=== PATIENT | female | born 1950 | race Two or more races ===

== ENCOUNTER 2019-03-22 06:12 | Day surgery (SDC) | payer MEDICARE, MEDICAID ==
[~2019-03-22] VITALS: Ht 154.9 cm; Wt 66.2 kg
[~2019-03-22 06:12] MED LIST: CYCLOPENTOLATE HCL 1% OPHTH DROPS 2ML RIGHTEYE SCH; PHENYLEPHRINE HCL 10% OPHTH DROPS 5ML RIGHTEYE SCH; TROPICAMIDE 1% OPHTH DROPS 15ML RIGHTEYE SCH
[2019-03-22] MEDS ORDERED: HYALURONATE SODIUM 14 MG/ML 0.85ML SYRINGE IO ONE (07:22)
[2019-03-22] MEDS ORDERED: FENTANYL CITRATE/PF 50MCG/ML 2ML VIAL ONE (07:25)
[2019-03-22] MEDS ORDERED: MIDAZOLAM HCL 2 MG/2 ML VIAL ONE (07:25)
[2019-03-22] MEDS ORDERED: DIPHENHYDRAMINE 50MG/ML VIAL ONE (07:25)
[2019-03-22] MEDS ORDERED: LIDOCAINE HCL/PF 1% 10 MG/ML 5ML VIAL ONE (07:27)
[2019-03-22] MEDS ORDERED: PROPOFOL 200MG/20ML VIAL IV ONE (07:27)
[2019-03-22] MEDS ORDERED: BALANCED SALT IRRIG SOLN COMB1 500ML OP ONE (07:30)
[2019-03-22] MEDS ORDERED: TETRACAINE 0.5% OPHTH DROPS 4ML ONE (09:00)
[2019-03-22] MEDS ORDERED: BALANCED SALT IRRIG SOLN 15ML ONE (09:00)
[2019-03-22] MEDS ORDERED: PREDNISOLONE ACETATE 1% OPHTH DROPS 5ML ONE (09:00)
[2019-03-22] MEDS ORDERED: CIPROFLOXACIN 0.3% OPHTH SOLN 2.5ML ONE (09:00)
[2019-03-22] MEDS ORDERED: LIDOCAINE HCL/PF 2% 20 MG/ML 10ML VIAL ONE (09:00)
[2019-03-22] MEDS ORDERED: METF-414 PO (14:29)
[2019-03-22] MEDS ORDERED: CYPR4TAB43 PO (14:29)
[2019-03-22] MEDS ORDERED: DOCU-138 PO (14:29)
[2019-03-22] MEDS ORDERED: DORZ10DR9 EACHEYE (14:29)
[2019-03-22] MEDS ORDERED: LATA2.5D2 EACHEYE (14:29)
[2019-03-22] MEDS ORDERED: OCD PO (14:29)
[2019-03-22] MEDS ORDERED: ATEN-42 PO (14:29)
[2019-03-22] MEDS ORDERED: BRIM.2 BOTHEYE (14:29)
[2019-03-22] MEDS ORDERED: FISH12002 PO (14:29)
[2019-03-22] MEDS ORDERED: CYAN1TAB43 PO (14:29)
[2019-03-22] MEDS ORDERED: SIME180C47 PO (14:29)
[2019-03-22] MEDS ORDERED: LISI-648 PO (14:29)
[2019-03-22] MEDS ORDERED: SIMV20TA6 PO (14:29)
[2019-03-22] MEDS ORDERED: ASPI-1393 PO (14:29)
[2019-03-22] MEDS ORDERED: FERR325T6 PO (14:29)
== END 2019-03-22 10:00 | disposition home or self-care (01) ==
LOC: OR 06:12
PROVIDERS: ATTEND Ophthalmology
DX: E11.36 Type 2 diabetes mellitus with diabetic cataract (principal); H25.89 Other age-related cataract; I10 Essential (primary) hypertension; K21.9 Gastro-esophageal reflux disease without esophagitis; M19.90 Unspecified osteoarthritis, unspecified site; E78.5 Hyperlipidemia, unspecified; G31.84 Mild cognitive impairment of uncertain or unknown etiology; D50.9 Iron deficiency anemia, unspecified; H40.9 Unspecified glaucoma; Z79.899 Other long term (current) drug therapy; Z79.84 Long term (current) use of oral hypoglycemic drugs; Z79.82 Long term (current) use of aspirin; Z98.890 Other specified postprocedural states
CPT/HCPCS: 66984; 82962; J1200; J2250; J2704; J3010; J3490; V2632

== ENCOUNTER → 2020-10-01 | Outpatient (CLI) | payer MEDICARE, MEDICAID ==
[~2020-10-01] MED LIST changes: +ASPI-1497 PO; +ATEN-42 PO; +BRIM.2 BOTHEYE; +BRIN8DRO BOTHEYE; +CYAN1TAB43 PO; +CYAN500T9 PO; -CYCLOPENTOLATE HCL 1% OPHTH DROPS 2ML RIGHTEYE SCH; +CYPR4TAB43 PO; +DOCU-138 PO; +DORZ10DR9 EACHEYE; +FERR325T6 PO; +FISH12002 PO; +FOLI0.4T6 PO; +LATA2.5D14 EACHEYE; +LISI-648 PO; +LISI20TA31 PO; +LOTE5DRO4 BOTHEYE; +METF-414 PO; +METH25TA5 PO; +OCD PO; -PHENYLEPHRINE HCL 10% OPHTH DROPS 5ML RIGHTEYE SCH; +SIME180C47 PO; +SIMV-43 PO; -TROPICAMIDE 1% OPHTH DROPS 15ML RIGHTEYE SCH
== END | disposition home or self-care (01) ==
LOC: LAB 09:59
PROVIDERS: ATTEND Ophthalmology
DX: Z01.812 Encounter for preprocedural laboratory examination (principal); Z20.822 Contact with and (suspected) exposure to COVID-19
CPT/HCPCS: 87426

== ENCOUNTER → 2020-10-02 | Day surgery (SDC) | payer MEDICARE, MEDICAID ==
[~2020-10-02] VITALS: Ht 162.6 cm; Wt 71.2 kg
[~2020-10-02] MED LIST changes: +ACETYLCHOLINE CHLORIDE INTRAOCULAR SOLUTION 1:100 ELECTROLYTE DILUENT IO ONE; +BALANCED SALT IRRIG SOLN 15ML ONE; +BALANCED SALT IRRIG SOLN COMB1 500ML OP SCH; +BUPIVACAINE HCL/PF 0.75% (7.5MG/ML) 10ML ONE; +CIPROFLOXACIN 0.3% OPHTH SOLN 2.5ML ONE; +FENTANYL CITRATE/PF 50MCG/ML 2ML VIAL ONE; +HYALURONATE SODIUM 10 MG/ML 0.55ML SYRINGE IO ONE; +KETOROLAC 30MG/ML VIAL ONE; +LACTATED RINGERS 1,000 ML IV SCH; +LIDOCAINE HCL 2%/EPINEPHRINE 1:100,000 20 ML VIAL INFIL ONE; +LIDOCAINE HCL/PF 1% 10 MG/ML 5ML VIAL ONE; +MIDAZOLAM HCL 2 MG/2 ML VIAL ONE; +MITOMYCIN 0.2 MG KIT OP SCH; +NEO/POLYMYX B SULF/DEXAMETH OPHTH OINT 3.5GM ONE; +PHENYLEPHRINE HCL 10% OPHTH DROPS 5ML LEFTEYE SCH; +PHENYLEPHRINE HCL 10% OPHTH DROPS 5ML ONE; +PREDNISOLONE ACETATE 1% OPHTH DROPS 5ML ONE; +PROPOFOL 200MG/20ML VIAL IV ONE; +TETRACAINE 0.5% OPHTH DROPS 4ML ONE; +TRIAMCINOLONE ACETONIDE 40MG/ML 1ML VIAL ONE; +TROPICAMIDE 1% OPHTH DROPS 15ML LEFTEYE SCH; +TROPICAMIDE 1% OPHTH DROPS 15ML ONE
== END | disposition home or self-care (01) ==
LOC: OR 06:40
PROVIDERS: ATTEND Ophthalmology
DX: H25.89 Other age-related cataract (principal); H40.89 Other specified glaucoma; I10 Essential (primary) hypertension; E87.1 Hypo-osmolality and hyponatremia; I45.10 Unspecified right bundle-branch block; N28.9 Disorder of kidney and ureter, unspecified; Z79.82 Long term (current) use of aspirin; Z79.899 Other long term (current) drug therapy; Z98.890 Other specified postprocedural states
CPT/HCPCS: 66170; 66982; J1885; J2250; J2704; J3010; J3490; V2632; J3301

== ENCOUNTER → 2021-05-07 | Day surgery (SDC) | payer MEDICARE, MEDICAID ==
[~2021-05-07] VITALS: Ht 162.6 cm; Wt 73.5 kg
[~2021-05-07] MED LIST changes: -ACETYLCHOLINE CHLORIDE INTRAOCULAR SOLUTION 1:100 ELECTROLYTE DILUENT IO ONE; +ATEN-42 MT; -ATEN-42 PO; -BALANCED SALT IRRIG SOLN COMB1 500ML OP SCH; -BRIM.2 BOTHEYE; -CYAN1TAB43 PO; -CYPR4TAB43 PO; -DOCU-138 PO; -FENTANYL CITRATE/PF 50MCG/ML 2ML VIAL ONE; +FERR325T6 MT; -FERR325T6 PO; -FISH12002 PO; -HYALURONATE SODIUM 10 MG/ML 0.55ML SYRINGE IO ONE; +HYDROMORPHONE HCL/PF 2MG/ML CPJ IV PRN; -KETOROLAC 30MG/ML VIAL ONE; +LABETALOL 5MG/ML SYR 20 MG/4 ML SYRINGE IV PRN; -LIDOCAINE HCL/PF 1% 10 MG/ML 5ML VIAL ONE; +LIDOCAINE HCL/PF 2% 20 MG/ML 10ML VIAL ONE; -LISI-648 PO; +MEPERIDINE HCL/PF 25MG/ML CPJ IV PRN; +METF-414 MT; -METF-414 PO; -MIDAZOLAM HCL 2 MG/2 ML VIAL ONE; +MITOMYCIN 0.2 MG KIT OP NR; -MITOMYCIN 0.2 MG KIT OP SCH; -OCD PO; +ONDANSETRON HCL 4MG/2ML INJ IV PRN; -PHENYLEPHRINE HCL 10% OPHTH DROPS 5ML LEFTEYE SCH; -PHENYLEPHRINE HCL 10% OPHTH DROPS 5ML ONE; -PROPOFOL 200MG/20ML VIAL IV ONE; -SIME180C47 PO; +SODIUM CHLORIDE 0.9% 1,000 ML IV SCH; -TROPICAMIDE 1% OPHTH DROPS 15ML LEFTEYE SCH; -TROPICAMIDE 1% OPHTH DROPS 15ML ONE
== END | disposition home or self-care (01) ==
LOC: OR 05:53
PROVIDERS: ATTEND Ophthalmology
DX: H40.89 Other specified glaucoma (principal); I10 Essential (primary) hypertension; E78.5 Hyperlipidemia, unspecified; R73.03 Prediabetes; I45.10 Unspecified right bundle-branch block; I49.9 Cardiac arrhythmia, unspecified; D50.9 Iron deficiency anemia, unspecified; E87.1 Hypo-osmolality and hyponatremia; Z79.899 Other long term (current) drug therapy; Z79.84 Long term (current) use of oral hypoglycemic drugs; Z98.890 Other specified postprocedural states; Z20.822 Contact with and (suspected) exposure to COVID-19
CPT/HCPCS: 66170; 82962; 87426; J3301; J3490

== ENCOUNTER → 2021-08-06 | Day surgery (SDC) | payer MEDICARE, MEDICAID ==
[~2021-08-06] VITALS: Ht 162.6 cm; Wt 73.5 kg
[~2021-08-06] MED LIST changes: -ASPI-1497 PO; +BALANCED SALT IRRIG SOLN COMB1 500ML OP NR; +BRIM10DR2 RIGHTEYE; +FENTANYL CITRATE/PF 50MCG/ML 2ML VIAL ONE; -FOLI0.4T6 PO; -HYDROMORPHONE HCL/PF 2MG/ML CPJ IV PRN; -LABETALOL 5MG/ML SYR 20 MG/4 ML SYRINGE IV PRN; -LACTATED RINGERS 1,000 ML IV SCH; +LIDOCAINE HCL/PF 1% 10 MG/ML 5ML VIAL ONE; -LIDOCAINE HCL/PF 2% 20 MG/ML 10ML VIAL ONE; -MEPERIDINE HCL/PF 25MG/ML CPJ IV PRN; +MIDAZOLAM HCL 2 MG/2 ML VIAL ONE; -MITOMYCIN 0.2 MG KIT OP NR; -ONDANSETRON HCL 4MG/2ML INJ IV PRN; +PRED5DRO22 RIGHTEYE; +PROPOFOL 200MG/20ML VIAL IV ONE
== END | disposition home or self-care (01) ==
LOC: OR 08:26
PROVIDERS: ATTEND Ophthalmology
DX: H40.9 Unspecified glaucoma (principal); I10 Essential (primary) hypertension; E78.00 Pure hypercholesterolemia, unspecified; D64.9 Anemia, unspecified; Z79.899 Other long term (current) drug therapy; Z98.890 Other specified postprocedural states; Z79.84 Long term (current) use of oral hypoglycemic drugs; Z20.822 Contact with and (suspected) exposure to COVID-19
CPT/HCPCS: 66180; 82962; 87426; J2250; J2704; J3010; J3301; J3490; C1762; C1783